=== PATIENT | female | born 1955 | race American Indian/Alaskan Native ===

== ENCOUNTER 2019-01-08 05:56 | Day surgery (SDC) | payer BC ==
[~2019-01-08 05:56] MED LIST: BUPIVACAINE-EPINEPHRINE/PF 0.5%-1:200,000 (30 ML) VIAL INFILTRATI ONE; LIDOCAINE (1%) 10 MG/1 ML VIAL 20 ML MDV INFILTRATI ONE; SODIUM CHLORIDE 0.9% IRR 1,000 ML BOTTLE IR ONE
[2019-01-08] MEDS ORDERED: ONDANSETRON 4 MG/2 ML INJ IV PRN (07:17)
[2019-01-08] MEDS ORDERED: fentaNYL 100 MCG/2 ML INJ IV PRN (07:17)
[2019-01-08] MEDS ORDERED: HYDROmorphone 1 MG/1 ML INJ IV PRN (07:17)
--- NOTE | 2019-01-08 07:26 | Anesthesia Day of Surgery ---
Anesthesia Day of Surgery - Day of Surgery Patient Examined: Yes Patient H&P Reviewed: Yes Patient is NPO: Yes
[2019-01-08] MEDS ORDERED: LIDOCAINE (1%) 10 MG/1 ML VIAL 20 ML MDV ONE (07:29)
[2019-01-08] MEDS ORDERED: BUPIVACAINE-EPINEPHRINE/PF 0.5%-1:200,000 (30 ML) VIAL INFILTRATI ONE ×2 (07:29→08:55)
--- NOTE | 2019-01-08 07:31 | Anesthesia Consultation ---
Anesthesia Consult and Med Hx Date of service: 01/08/19 - Airway Anesthetic Teeth Evaluation: Dentures, Edentulous ROM Head & Neck: Adequate Mental/Hyoid Distance: Adequate Mallampati Class: Class II Intubation Access Assessment: Good - Pre-Operative Health Status ASA Pre-Surgery Classification: ASA3 Proposed Anesthetic Plan: General - Pulmonary Hx Smoking: Yes (QUIT 2010) Hx Sleep Apnea: No (HIGH RISK ON ZEV PRESCREEN- SNORES) - Cardiovascular System Hx Heart Attack/AMI: No (NST 2015; ECHO 2015, 2018 OK per pt) Hx Pacemaker: No Hx Internal Defibrillator: No Hx Heart Murmur: Yes - Gastrointestinal Hx Gastroesophageal Reflux Disease: Yes (Occasionally and much better now) - Endocrine Hx Cirrhosis: No (FATTY LIVER) Hx Hypothyroidism: No - Hematic Hx Anemia: Yes (LOW PLATELET COUNT) - Other Systems Hx Alcohol Use: No Hx Substance Use: No Hx Cancer: Yes (Cervical)
[2019-01-08] MEDS ORDERED: PROPOFOL 200 MG/20 ML VIAL IV ONE (07:33)
[2019-01-08] MEDS ORDERED: fentaNYL 100 MCG/2 ML INJ ONE (07:33)
[2019-01-08] MEDS ORDERED: LIDOCAINE MPF (2%) 20 MG/1 ML VIAL 5 ML ONE (07:35)
[2019-01-08] MEDS ORDERED: LACTATED RINGERS 1,000 ML IV SCH (08:00)
[2019-01-08] MEDS ORDERED: VANCOMYCIN 1,500 MG in SODIUM CHLORIDE 0.9% 500 ML 500 ML IV ONE (08:00)
[2019-01-08] MEDS ORDERED: MIDAZOLAM 2 MG/2 ML INJ IV NR (08:00)
[2019-01-08] MEDS ORDERED: LIDOCAINE (1%) 10 MG/1 ML VIAL 20 ML MDV INFILTRATI ONE (08:55)
[2019-01-08] MEDS ORDERED: SODIUM CHLORIDE 0.9% IRR 1,000 ML BOTTLE IR ONE (08:55)
--- NOTE | 2019-01-08 09:18 | Short Stay Summary ---
Short Stay Documentation Date of service: 01/08/19 - History Principal diagnosis: malfunctioning peritoneal drainage catheter H&P: obtained from office - Allergies and Medications Current Medications: Allergies cefazolin Allergy (Verified 11/24/18 15:07) Rash heparin Allergy (Verified 11/24/18 15:07) Rash ibuprofen [From Motrin] Allergy (Verified 11/24/18 15:07) Rash lisinopril Allergy (Verified 11/24/18 15:07) Rash penicillin G procaine Allergy (Verified 11/24/18 15:07) Rash Home Medications Medication Instructions Recorded Confirmed Last Taken Type Apixaban [Eliquis] 5 mg PO BID 12/31/18 01/08/19 01/06/19 08:00 History Dicyclomine 20 mg PO BID 12/31/18 12/31/18 Unknown History Ferrous Sulfate 325 mg PO BID 12/31/18 01/08/19 01/07/19 20:00 History Magnesium Oxide 500 mg PO BID 12/31/18 01/08/19 01/07/19 20:00 History Milk Thistle 250 mg PO BID 12/31/18 01/08/19 01/07/19 20:00 History Ondansetron (Nf) [Zofran TAB] 8 mg PO PRN 12/31/18 12/31/18 Unknown History Potassium Chloride 99 mg PO DAILY 12/31/18 01/08/19 01/07/19 20:00 History Super B Complex-Vitamin C 1 tab PO DAILY 12/31/18 01/08/19 01/07/19 20:00 History Vitamin C 500 mg PO DAILY 12/31/18 01/08/19 01/07/19 20:00 History Vitamin D3 5,000 units AK DAILY 12/31/18 01/08/19 01/07/19 20:00 History Active Medications Fentanyl (Sublimaze) 50 mcg IV Q5MIN PRN PRN Reason: Pain , Severe (7-10) Stop: 01/08/19 16:45 Hydromorphone HCl (Dilaudid) 0.5 mg IV Q10MIN PRN PRN Reason: Pain , Severe (7-10) Stop: 01/08/19 16:45 Lactated Ringer's (Lactated Ringers) 1,000 mls @ 125 mls/hr IV DIRECT AURA Last Admin: 01/08/19 07:40 Dose: 125 mls/hr Documented by: Vancomycin HCl 1,500 mg/ (Sodium Chloride) 530 mls @ 333 mls/hr IV ONCE ONE; Protocol Stop: 01/08/19 09:35 Last Admin: 01/08/19 08:02 Dose: 333 mls/hr Documented by: Midazolam HCl (Versed) 2 mg IV PREOP NR Stop: 01/08/19 23:59 Last Admin: 01/08/19 08:00 Dose: 2 mg Documented by: Ondansetron HCl (Zofran) 4 mg IV ONCE PRN PRN Reason: Nausea And Vomiting - Brief post op/procedure progress note Date of procedure: 01/08/19 Pre-op diagnosis: malfunctioning peritoneal drainage catheter Post-op diagnosis: same Procedure: removal of peritoneal drainage catheter Anesthesia: MAC, local Findings: 1. 2 joe at catheter entry site into skin 2. erythema of skin surrounding catheter entry site and skin at site of fascial cuff - 1 cc of purulent drainage at latter site Surgeon: CHRISTIANE CENTENO Estimated blood loss: none Pathology: list (1. wound culture 2. peritoneal drainage catheter) Specimen disposition: to lab Condition: stable - Hospital course Hospital course: Pt observed in PACU and discharged to home in stable condition - Disposition Condition at discharge: Good Disposition: DC-01 TO HOME OR SELFCARE Short Stay Discharge Plan Activity: no restrictions Diet: regular Wound: other (leave dressing in place until seen by surgeon in office) Additional Instructions: 1. Leave outer dressing intact until seen by Dr. Centeno in the office 2. You have a follow up appointment with Dr. Centeno on 01/11/19 at 10am for dressing change 3. You may sponge bathe 4. Ok to restart eliquis tomorrow 01/09/19 Follow up with: KELI DIAMOND MD [Primary Care Provider] - 7 Days CHRISTIANE CENTENO DO [Staff Physician] - 3 Days Prescriptions: Ciprofloxacin HCl [Ciprofloxacin TAB] 500 mg PO Q12HR #14 tab HYDROcodone/APAP 5-325 [[place] 5/325] 1 each PO Q6HR PRN #10 tablet PRN Reason: Pain
[2019-01-08] MEDS ORDERED: HYDROcodone/ACETAMINOPHEN 5-325 MG TAB PO PRN (09:49)
[2019-01-08 11:03] VITALS: BP 133/79
--- NOTE | 2019-01-08 11:23 | Operative Report ---
Operative Report Operative Report: Date of procedure: 01/08/19 Pre-op diagnosis: malfunctioning peritoneal drainage catheter Post-op diagnosis: same Procedure: removal of peritoneal drainage catheter Anesthesia: MAC, local Findings: 1. 2 joe at catheter entry site into skin 2. erythema of skin surrounding catheter entry site and skin at site of fascial cuff - 1 cc of purulent drainage at latter site Surgeon: CHRISTIANE CENTENO Estimated blood loss: none Pathology: list (1. wound culture 2. peritoneal drainage catheter) Specimen disposition: to lab Condition: stable - Hospital course Hospital course: Pt observed in PACU and discharged to home in stable condition HPI and indication: 63 yo F with peritoneal drainage catheter which is no longer functioning. Recommendation was to remove the catheter. All risks, benefits, alternatives to surgery discussed with patient and questions answered. Consent obtained. With clearance from hematology, eliquis was held for 24 hours prior to procedure. Procedure in detail: Pt identified in the preoperative area and brought back to the OR, and placed on the operating room table in supine position. After anesthesia was induced, the abdomen along with the catheter was prepped in the usual sterile fashion and a time out performed. There was erythema and induration of skin surrounding catheter entry site and skin at site of fascial cuff. Local anesthetic was infiltrated in the skin to the left of the umbilicus, at the site of the tunneled cuff. There was 1 cc of purulent drainage at this site. Cultures were obtained from the wound. Dissection was carried down through the subcutaneous tissue using a hemostat until the cuff was identified. The cuff was dissected free from the surrounding tissue using hemostat. The cuff at the catheter insertion site was also dissected free from the surrounding tissue using the hemostat. The entire catheter was then removed intact. The wounds were irrigated with saline and hemostasis carefully ensured. The wounds were packed with 1/4 inch iodoform packing - one piece each. They were covered with dry 4x4 gauze and medipore tape. The patient tolerated the procedure well. At the end of the case, all sponge, instrument, sharp counts were correct x 2. She was taken to the PACU in stable condition.
--- NOTE | 2019-01-08 18:58 | Post Anesthesia Evaluation ---
- Post Anesthesia Evaluation Patient Participated: Yes Airway Patent: Yes Stable Respiratory Function: Yes Nausea/Vomiting: No Temp > 96.8F: Yes Pain Manageable: Yes Adequeate Hydration: Yes Anesthesia Complications: No Block Receding Appropriately: Not Applicable Patient on Ventilator: No
== END 2019-01-08 11:00 | disposition home or self-care (01) ==
LOC: OR 05:56
PROVIDERS: ATTEND Surgery
DX: T85.698A Other mechanical complication of other specified internal prosthetic devices, implants and grafts, initial encounter (principal); K21.9 Gastro-esophageal reflux disease without esophagitis; F17.210 Nicotine dependence, cigarettes, uncomplicated; Z90.49 Acquired absence of other specified parts of digestive tract; Z85.89 Personal history of malignant neoplasm of other organs and systems; Z79.899 Other long term (current) drug therapy; Z88.0 Allergy status to penicillin; Z88.8 Allergy status to other drugs, medicaments and biological substances; Z98.41 Cataract extraction status, right eye; Z98.42 Cataract extraction status, left eye; Z86.711 Personal history of pulmonary embolism; Z86.718 Personal history of other venous thrombosis and embolism; Z90.710 Acquired absence of both cervix and uterus; Z98.890 Other specified postprocedural states; Z85.43 Personal history of malignant neoplasm of ovary; Z86.2 Personal history of diseases of the blood and blood-forming organs and certain disorders involving the immune mechanism; Y92.89 Other specified places as the place of occurrence of the external cause; Y83.8 Other surgical procedures as the cause of abnormal reaction of the patient, or of later complication, without mention of misadventure at the time of the procedure
CPT/HCPCS: 49422; 87075; 87076; 87116; 87186; 88302; J1170; J2250; J2704; J3010; J3370; J7040; J7120

== ENCOUNTER 2019-01-21 09:31 | Outpatient (CLI) | payer BC ==
[2019-01-21] MEDS ORDERED: LIDOCAINE (4%) 40 MG/ML TOPICAL SOLN 50 ML BOTTLE TP ONE (10:18)
== END 2019-01-21 09:32 | disposition home or self-care (01) ==
LOC: WOUND 09:31
PROVIDERS: ATTEND Surgery
DX: T81.89XD Other complications of procedures, not elsewhere classified, subsequent encounter (principal); Z85.43 Personal history of malignant neoplasm of ovary; Z86.718 Personal history of other venous thrombosis and embolism; I89.0 Lymphedema, not elsewhere classified; Z90.710 Acquired absence of both cervix and uterus; Z87.891 Personal history of nicotine dependence; Y83.8 Other surgical procedures as the cause of abnormal reaction of the patient, or of later complication, without mention of misadventure at the time of the procedure
CPT/HCPCS: 17250; G0463; 99214

== ENCOUNTER 2019-02-04 09:45 | Outpatient (CLI) | payer BC | END 2019-02-04 09:46 | disposition home or self-care (01) | LOC: WOUND 09:45 | PROVIDERS: ATTEND Surgery | DX: T81.89XD Other complications of procedures, not elsewhere classified, subsequent encounter (principal); Z85.43 Personal history of malignant neoplasm of ovary; Z86.718 Personal history of other venous thrombosis and embolism; I89.0 Lymphedema, not elsewhere classified; Z90.710 Acquired absence of both cervix and uterus; Z87.891 Personal history of nicotine dependence; Y83.8 Other surgical procedures as the cause of abnormal reaction of the patient, or of later complication, without mention of misadventure at the time of the procedure | CPT/HCPCS: 99213; G0463 ==